=== PATIENT | female | born 1945 | race Caucasian/White ===

== ENCOUNTER 2019-02-25 08:01 | Emergency (ER) | payer MEDICARE, BC ==
[~2019-02-25] VITALS: Ht 162.6 cm; Wt 77.1 kg
--- NOTE | 2019-02-25 08:44 | NUR ---
Dr. Sorto here to see pt for MSE. Addendum: 02/25/19 at 0900 by TEGAN Nose clamp and 4x4 gauze provided to the pt.
--- NOTE | 2019-02-25 09:24 | NUR ---
Nose bleed packed by MD. Pt reported feeling better with reduced bleeding. Will continue to monitor.
--- NOTE | 2019-02-25 09:57 | NUR ---
Patient discharged to home in stable conditon. Written and verbal after care instructions given. Patient verbalizes understanding of instructions.
== END 2019-02-25 10:00 | disposition home or self-care (01) ==
LOC: ER 08:01
DX: R04.0 Epistaxis (principal); E78.5 Hyperlipidemia, unspecified
CPT/HCPCS: 30901; A4217; A4663